=== PATIENT | female | born 1955 | race Caucasian/White ===

== ENCOUNTER 2020-11-07 14:28 | Inpatient (IN) | payer OTHER ==
[2020-11-07] MEDS ORDERED: MENTHOL/PHENOL 1 EACH UD MM PRN (17:09)
[2020-11-07] MEDS ORDERED: BISMUTH SUBSALICYLATE 524 MG/30 ML PO PRN (17:09)
[2020-11-07] MEDS ORDERED: MAGNESIUM CITRATE 300 ML BOTTLE PO PRN (17:09)
[2020-11-07] MEDS ORDERED: MAG HYDROX/AL HYDROX/SIMETH 30 ML UNIT-DOSE CUP PO PRN (17:09)
[2020-11-07] MEDS ORDERED: ONDANSETRON *ODT* 4 MG TABLET SL PRN (17:09)
[2020-11-07] MEDS ORDERED: ACETAMINOPHEN 325 MG TABLET (FP) PO PRN (17:09)
[2020-11-07] MEDS ORDERED: methaDONE HCL 10 MG TABLET (FOR DETOX USE ONLY) PO ONE (17:12)
[2020-11-07 17:44] VITALS: BMI 34.2
[2020-11-07] MEDS ORDERED: MELATONIN 5 MG TABLETS PO SCH (22:00)
[2020-11-07] MEDS ORDERED: methaDONE HCL 10 MG TABLET (FOR DETOX USE ONLY) ONE (23:52)
[2020-11-07] MEDS: THIAMINE HCL 100 MG TABLET (FP) PO SCH (23:57)
[2020-11-08] MEDS: ACETAMINOPHEN 325 MG TABLET (FP) PO PRN ×2 (00:02→10:23)
[2020-11-08] MEDS: LEVOTHYROXINE NA 100 MCG TABLET (FP) PO SCH (05:48)
[2020-11-08] MEDS: IBUPROFEN 400 MG TABLET (FP) PO PRN ×2 (05:49→22:36)
[2020-11-08] MEDS ORDERED: methaDONE HCL 10 MG TABLET (FOR DETOX USE ONLY) PO ONE (10:00)
[2020-11-08] MEDS: LISINOPRIL 20 MG TABLET PO SCH (10:19)
[2020-11-08] MEDS: FLUTICASONE PROP 0.05% 16 GM NASAL SPRAY NS SCH ×3 (10:19→22:38)
[2020-11-08] MEDS: PRENATAL VITAMINS W/ FOLIC ACID TABLET (FP) PO SCH (10:19)
[2020-11-08] MEDS: METHOCARBAMOL 500 MG TABLET PO PRN (10:20)
[2020-11-08] MEDS: hydrOXYzine PAMOATE 25 MG CAPSULE (FP) PO PRN (10:20)
[2020-11-08] MEDS: PANTOPRAZOLE 40 MG TABLET PO SCH (10:20)
[2020-11-08] MEDS: MAGNESIUM HYDROX 2400MG/30ML ORAL SUSPENSION 30 ML CUP PO PRN (10:22)
[2020-11-08 11:40] LABS: HEMATOCRIT 43.7 % (32.4-45.2); HEMOGLOBIN 14.8 GM/dL (10.7-15.3); MCH 29.1 pg (25.7-33.7); MCHC 33.8 g/dl (32.0-36.0); MEAN CELL VOLUME 85.9 fl (80-96); MEAN PLT VOLUME 9.3 fl (7.5-11.1); PLATELET COUNT 236 10^3/uL (134-434); RBC 5.09 M/mm3 (3.60-5.2); RDW 13.8 % (11.6-15.6); WHITE BLOOD COUNT 9.6 K/mm3 (4.0-10.0)
[2020-11-08 11:50] LABS: ALBUMIN 3.6 g/dl (3.4-5.0); BLOOD UREA NITROGEN 15.4 mg/dL (7-18); CALCIUM 9.1 mg/dL (8.5-10.1)
[2020-11-08 11:53] LABS: CREATININE 0.9 mg/dL (0.55-1.3)
[2020-11-08 11:55] LABS: BILIRUBIN,TOTAL 0.6 mg/dL (0.2-1)
[2020-11-08] MEDS ORDERED: DICYCLOMINE HCL 10 MG CAPSULE PO ONE (13:45)
[2020-11-08] MEDS ORDERED: ONDANSETRON *ODT* 4 MG TABLET SL ONE (13:45)
[2020-11-08] MEDS: SUVOREXANT 10 MG TABLET PO PRN (22:35)
[2020-11-08] MEDS: THIAMINE HCL 100 MG TABLET (FP) PO SCH (22:37)
[2020-11-09] MEDS: LEVOTHYROXINE NA 100 MCG TABLET (FP) PO SCH (05:53)
[2020-11-09] MEDS: hydrOXYzine PAMOATE 25 MG CAPSULE (FP) PO PRN ×2 (05:54→17:12)
[2020-11-09] MEDS: cloNIDine HCL 0.1 MG TABLET PO PRN ×2 (05:54→17:11)
[2020-11-09] MEDS: METHOCARBAMOL 500 MG TABLET PO PRN (05:54)
[2020-11-09] MEDS ORDERED: MASKS NR ONE (07:09)
[2020-11-09] MEDS: MAGNESIUM HYDROX 2400MG/30ML ORAL SUSPENSION 30 ML CUP PO PRN (07:22)
[2020-11-09] MEDS: PRENATAL VITAMINS W/ FOLIC ACID TABLET (FP) PO SCH (10:02)
[2020-11-09] MEDS: FLUTICASONE PROP 0.05% 16 GM NASAL SPRAY NS SCH ×2 (10:02→22:25)
[2020-11-09] MEDS: PANTOPRAZOLE 40 MG TABLET PO SCH (10:03)
[2020-11-09] MEDS: LISINOPRIL 20 MG TABLET PO SCH (10:03)
[2020-11-09] MEDS ORDERED: NICOTINE 10 MG CARTRIDGE (INHALER) IH PRN (10:25)
[2020-11-09] MEDS ORDERED: NICOTINE POLACRILEX 2 MG GUM BUC PRN (10:25)
[2020-11-09] MEDS: IBUPROFEN 400 MG TABLET (FP) PO PRN (17:09)
[2020-11-09] MEDS: SUVOREXANT 10 MG TABLET PO PRN (22:23)
[2020-11-09] MEDS: THIAMINE HCL 100 MG TABLET (FP) PO SCH (22:23)
[2020-11-10] MEDS: METHOCARBAMOL 500 MG TABLET PO PRN ×3 (03:46→21:25)
[2020-11-10] MEDS: IBUPROFEN 400 MG TABLET (FP) PO PRN (03:47)
[2020-11-10] MEDS: LEVOTHYROXINE NA 100 MCG TABLET (FP) PO SCH (05:59)
[2020-11-10] MEDS ORDERED: SUVOREXANT 15 MG TABLET PO PRN (08:25)
[2020-11-10] MEDS ORDERED: methaDONE HCL 10 MG TABLET (FOR DETOX USE ONLY) PO ONE (10:00)
[2020-11-10] MEDS: PRENATAL VITAMINS W/ FOLIC ACID TABLET (FP) PO SCH (10:01)
[2020-11-10] MEDS: PANTOPRAZOLE 40 MG TABLET PO SCH (10:01)
[2020-11-10] MEDS: LISINOPRIL 20 MG TABLET PO SCH (10:01)
[2020-11-10] MEDS: FLUTICASONE PROP 0.05% 16 GM NASAL SPRAY NS SCH ×2 (10:01→21:23)
[2020-11-10] MEDS: hydrOXYzine PAMOATE 50 MG CAPSULE (FP) PO PRN ×3 (10:02→20:04)
[2020-11-10] MEDS: ACETAMINOPHEN 325 MG TABLET (FP) PO PRN (12:39)
[2020-11-10] MEDS: HYDROCHLOROTHIAZIDE 12.5 MG CAPSULE (FP) PO SCH (17:46)
[2020-11-10] MEDS: THIAMINE HCL 100 MG TABLET (FP) PO SCH (21:23)
[2020-11-10] MEDS ORDERED: cloNIDine HCL 0.1 MG TABLET PO ONE (23:45)
[2020-11-11] MEDS: LEVOTHYROXINE NA 100 MCG TABLET (FP) PO SCH (06:08)
[2020-11-11] MEDS: hydrOXYzine PAMOATE 50 MG CAPSULE (FP) PO PRN (07:22)
[2020-11-11] MEDS: PANTOPRAZOLE 40 MG TABLET PO SCH (09:15)
[2020-11-11] MEDS: HYDROCHLOROTHIAZIDE 12.5 MG CAPSULE (FP) PO SCH (09:15)
[2020-11-11] MEDS: IBUPROFEN 400 MG TABLET (FP) PO PRN (09:15)
[2020-11-11] MEDS: LISINOPRIL 20 MG TABLET PO SCH (09:15)
[2020-11-11] MEDS: FLUTICASONE PROP 0.05% 16 GM NASAL SPRAY NS SCH (09:16)
[2020-11-11] MEDS: PRENATAL VITAMINS W/ FOLIC ACID TABLET (FP) PO SCH (09:16)
[2020-11-11 09:23] VITALS: BP 151/88; PULSE 60; TEMP 97.7
== END 2020-11-11 09:21 | disposition home or self-care (01) | DRG 773 ==
LOC: YASAS 14:28 → Y6N 22:33
PROVIDERS: ADMIT Allergy & Immunology; ATTEND Allergy & Immunology
PROC: HZ2ZZZZ Detoxification Services for Substance Abuse Treatment (ICD-10-PCS; principal; 2020-11-07)
DX: F11.23 Opioid dependence with withdrawal (principal); F17.210 Nicotine dependence, cigarettes, uncomplicated; F19.282 Other psychoactive substance dependence with psychoactive substance-induced sleep disorder; F19.24 Other psychoactive substance dependence with psychoactive substance-induced mood disorder; F31.9 Bipolar disorder, unspecified; I10 Essential (primary) hypertension; K21.9 Gastro-esophageal reflux disease without esophagitis; E03.9 Hypothyroidism, unspecified; H40.9 Unspecified glaucoma; Z96.653 Presence of artificial knee joint, bilateral; Z86.19 Personal history of other infectious and parasitic diseases
CPT/HCPCS: 36415; 80053; 81025; 85027; 86780; C9803; J0735; Q0162; U0003; U0005